=== PATIENT | female | born 1960 | race Caucasian/White ===

== ENCOUNTER → 2020-08-08 | Outpatient (CLI) | payer BC | LOC: RAD 11:22 | DX: M79.644 Pain in right finger(s) (principal); M19.041 Primary osteoarthritis, right hand | CPT/HCPCS: 73130 ==

== ENCOUNTER → 2020-08-09 | Outpatient (CLI) | payer BC | LOC: EXRD 14:20 | DX: M85.80 Other specified disorders of bone density and structure, unspecified site (principal) | CPT/HCPCS: 77080 ==

== ENCOUNTER → 2020-10-02 | Outpatient (CLI) | payer BC | LOC: RAD 14:34 | DX: S63.501A Unspecified sprain of right wrist, initial encounter (principal) | CPT/HCPCS: 73090 ==

== ENCOUNTER → 2020-10-08 | Outpatient (CLI) | payer BC ==
[2020-10-08 11:04] LABS: HEMOGLOBIN 14.7 gm/dl (12.3-15.3); RED BLOOD COUNT 4.62 M/UL (4.00-5.10); WHITE BLOOD COUNT 7.1 K/UL (4.5-11.0)
[2020-10-09 08:14] LABS: RHEUMATOID ARTHRITIS FACTOR <10.0 IU/mL (0.0-13.9)
[2020-10-10 00:11] LABS: CCP ANTIBODIES IGG/IGA 4 units (0-19)
== END ==
LOC: LAB 10:12
PROVIDERS: Internal Medicine
DX: M19.90 Unspecified osteoarthritis, unspecified site (principal)
CPT/HCPCS: 36415; 82550; 84550; 85025; 85652; 86038; 86140; 86200; 86431

== ENCOUNTER → 2020-10-18 | Outpatient (CLI) | payer BC ==
[2020-10-18 11:12] LABS: HEMOGLOBIN 14.7 gm/dl (12.3-15.3); RED BLOOD COUNT 4.59 M/UL (4.00-5.10); WHITE BLOOD COUNT 8.1 K/UL (4.5-11.0)
[2020-10-18 15:49] LABS: BUN/CREATININE RATIO 14 (0-10)
== END ==
LOC: CT 10:48
PROVIDERS: Physician Assistant
DX: E55.9 Vitamin D deficiency, unspecified (principal); R53.83 Other fatigue; Z13.1 Encounter for screening for diabetes mellitus; Z13.220 Encounter for screening for lipoid disorders; E03.9 Hypothyroidism, unspecified; M19.90 Unspecified osteoarthritis, unspecified site; M79.631 Pain in right forearm
CPT/HCPCS: 36415; 73201; 80053; 80061; 82607; 82746; 84439; 84443; 85025; Q9963

== ENCOUNTER → 2020-11-01 | Outpatient (CLI) | payer BC | LOC: LAB 13:34 | DX: M19.90 Unspecified osteoarthritis, unspecified site (principal) | CPT/HCPCS: 36415; 82550 ==

== ENCOUNTER → 2020-12-28 | Outpatient (CLI) | payer BC ==
[2020-12-29 07:11] LABS: VITAMIN D, 25-HYDROXY 44.3 ng/mL (30.0-100.0)
[2020-12-29 08:13] LABS: RHEUMATOID ARTHRITIS FACTOR <10.0 IU/mL (0.0-13.9)
== END ==
LOC: LAB 06:50
PROVIDERS: Nurse Practitioner Family
DX: D89.9 Disorder involving the immune mechanism, unspecified (principal); M25.50 Pain in unspecified joint; R76.8 Other specified abnormal immunological findings in serum; R74.8 Abnormal levels of other serum enzymes; R53.83 Other fatigue; M79.10 Myalgia, unspecified site
CPT/HCPCS: 36415; 82550; 82728; 83520; 85652; 86140; 86200; 86431

== ENCOUNTER → 2021-07-16 | Outpatient (CLI) | payer BC ==
[2021-07-17 11:16] LABS: TSH 6.76 uIU/mL (0.450-4.500)
== END ==
LOC: LAB 11:17
PROVIDERS: Physician Assistant
DX: E03.9 Hypothyroidism, unspecified (principal)
CPT/HCPCS: 36415; 84439; 84443